=== PATIENT | male | born 1970 | race Two or more races ===

== ENCOUNTER 2025-03-24 08:33 | Emergency (ER) | payer MEDICAID, SELFPAY ==
[2025-03-24 08:34] VITALS: BMI 38.3
--- NOTE | 2025-03-24 09:01 | XR_ITS ---
Examination: CT abdomen and pelvis without contrast. Coronal 3-D reconstructions. Sagittal 2-D reconstructions. Date and time of exam: March 24, 2025, 0911 hours, comparison January 24, 2013 INDICATIONS: Left lower abdominal pain testicular pain beginning 1 month ago CTDI: vol (mGy): 12.8 DLP: (mGycm): 784 Technique: Axial images of the abdomen have been obtained, 3 mm slice thickness Intravenous contrast material has not been administered. Low dose protocols were performed. One or more of the following dose reduction techniques were used; automated exposure control, adjustment of the mA and/or KV according to patient size, use of iterative reconstruction technique. Findings: No focal liver or splenic lesions No gallstones No pancreatic or adrenal mass No renal or ureteral calculi, no hydronephrosis Aorta normal size Normal appendix Colonic diverticulosis, no diverticulitis Fat-containing inguinal hernias No prostatomegaly No current diverticulitis No bladder mass or bladder calculi IMPRESSION: No renal or ureteral calculi, no hydronephrosis Normal appendix Colonic diverticulosis, no diverticulitis currently Large bilateral fat-containing inguinal hernias
--- NOTE | 2025-03-24 09:01 | XR_ITS ---
EXAMINATION: Testicular sonography complete TECHNIQUE: Grayscale sonographic images to testes, assessment arterial inflow and venous outflow Doppler spectral analysis and color flow analysis Date and time: March 17, 10:00 a.m. INDICATIONS: Left testicular pain 1 month, history mass left testicle removed surgically FINDINGS: Right testis 3.1 cm epididymis not visualized Arterial flow of the testicle. No testicular mass Left testis 4.3 cm epididymis 20 mm Oval left epididymal mass 3.9 x 2.5 x 3.0 cm Significant left hydrocele with debris IMPRESSION: No testicular torsion Left epididymitis Left epididymal mass with vascularity 3.9 x 2.5 x 3.0 cm
--- NOTE | 2025-03-24 09:01 | PD.EDRME ---
Rapid Medical Screening Exam RME Arrival date/time: 03/24/25 08:33 54-year-old male with a history of hypertension presents to the emergency room with a chief complaint of testicular swelling and testicular pain x 3 days. Patient states he has a history of testicular problems. I have greeted and performed a focused initial assessment of this patient. A comprehensive ED assessment and evaluation of the patient, analysis of all test results, and completion of the medical decision making process will be conducted by additional ED providers. Chief Complaint: Urogenital-Male Time Seen by Provider: 03/24/25 08:48 Vital signs reviewed by provider: Yes Exam: Soft nontender abdomen with palpation Testicular swelling. Positive cremasteric reflex Clinical Impression: Epididymitis/UTI/testicular torsion/testicular mass
[2025-03-24 09:32] VITALS: BP 194/128; PULSE 89; RESP 18; TEMP 36.9; O2SAT 99
[2025-03-24] MEDS: KETOROLAC INJ 60 MG/2 ML VIAL 30 MG IM (09:32)
[2025-03-24 09:38] VITALS: BP 193/134; PULSE 91
[2025-03-24 09:58] LABS: Basophils # (Auto) 0.0 Thou/mm3 (0.0-0.2); Basophils % (Auto) 1 % (0-2.5); Eosinophils # (Auto) 0.1 Thou/mm3 (0.0-0.5); Eosinophils % (Auto) 1 % (0-10); Hematocrit 41.8 % (41.0-53.0); Hemoglobin 14.1 g/dL (13.5-16.0); Immature Granulocytes Auto 0.02 Thou/mm3 (0.00-0.00); Lymphocytes # (Auto) 1.7 Thou/mm3 (1.0-4.8); Lymphocytes % (Auto) 25 % (10-50); Mean Corpuscular HGB Conc 33.7 g/dl (31.0-37.0); Mean Corpuscular Hemoglobin 28.7 pg (25.0-35.0); Mean Corpuscular Volume 85 fL (80-100); Monocytes # (Auto) 0.5 Thou/mm3 (0.0-0.8); Monocytes % (Auto) 8 % (0-12); Neutrophils # (Auto) 4.4 Thou/mm3 (1.8-7.7); Neutrophils % (Auto) 65 % (37-80); Nucleated Red Blood Cell # 0.00 Thou/mm3 (0.00-0.00); Nucleated Red Blood Cell % 0 /100 WBC (0); Platelet Count 269 Thou/mm3 (140-440); RDW Standard Deviation 42.4 fL (35.1-43.9); Red Blood Count 4.92 Miln/mm3 (4.50-5.90); White Blood Count 6.7 Thou/mm3 (3.8-10.6)
[2025-03-24 10:19] LABS: Alanine Aminotransferase 26 U/L (10-49); Albumin, Serum 4.8 gm/dL (3.5-5.0); Albumin/Globulin Ratio 2.2 (1.2-2.2); Alkaline Phosphatase 76 U/L (46-116); Anion Gap 10 (7-16); Aspartate Amino Transferase 25 U/L (0-34); BUN/Creatinine Ratio 16 Ratio (12-20); Bilirubin,Total 0.6 mg/dL (0.3-1.2); Blood Urea Nitrogen 14 mg/dL (9-23); Calcium 9.3 mg/dL (8.3-10.6); Calcium (Corrected) 9.3 mg/dL (8.5-10.1); Carbon Dioxide 26.7 mMol/L (20.0-31.0); Chloride 104 mMol/L (98-107); Creatinine (Component) 0.9 mg/dL (0.6-1.3); Estimated Creatinine Clearance 126.2 mL/min (>60); Globulin 2.2 gm/dL (2.3-3.5); Glucose 106 mg/dL (74-106); Lipase 39 U/L (12-53); Osmolality,Calculated 281 (275-295); Potassium 3.9 mMol/L (3.4-5.1); Sodium 141 mMol/L (136-145); Total Protein 7.0 gm/dL (5.7-8.2); eGFR > 60 See Note
[2025-03-24 10:34] VITALS: BP 188/114; PULSE 79; RESP 19; O2SAT 100
--- NOTE | 2025-03-24 10:49 | PD.EDMALE ---
ED Male Genitalurinary RME/HPI General Chief complaint: Urogenital-Male Stated complaint: SWELLING/PAIN LEFT TESTICLE x 1 MONTH Time Seen by Provider: 03/24/25 08:48 Arrival date/time: 03/24/25 08:33 Limitations: no limitations RME / HPI RME / HPI Narrative: 03/24/25 08:33 54-year-old male with a history of hypertension presents to the emergency room with a chief complaint of testicular swelling and testicular pain x 3 days. Patient states he has a history of testicular problems. I have greeted and performed a focused initial assessment of this patient. A comprehensive ED assessment and evaluation of the patient, analysis of all test results, and completion of the medical decision making process will be conducted by additional ED providers. DR. CRUZ MAIN ED EVALUATION: 54 year old male with history of chronic epididymitis, s/p right testicular mass removal performed in [place], [place] in 2017, hypertension presents to the ED for evaluation of left testicular pain beginning 1 month ago that is progressively worsening. Pain described as aching in sensation, rating 7/10 in severity. Reports pain today similar to the right testicular pain he had before the tumor removal. Denies any fevers, chills, or urinary symptoms. Denies consulting with urologist since onset of pain. Exam: Soft nontender abdomen with palpation Testicular swelling. Positive cremasteric reflex Impression: Epididymitis/UTI/testicular torsion/testicular mass Related Data Home Medications ?Medication ?Instructions ?Recorded ?Confirmed albuterol sulfate 90 mcg/actuation 2 puff inhalation Q4H PRN Cough 11/11/21 11/11/21 aerosol inhaler ibuprofen 600 mg tablet 1 tab PO TID PRN Pain 11/11/21 11/11/21 meloxicam 15 mg tablet 1 tab PO QDAY 11/11/21 11/11/21 Previous Rx's ?Medication ?Instructions ?Recorded amlodipine 10 mg tablet 10 mg PO QDAY #30 tabs 11/11/21 clonidine HCl 0.1 mg tablet 0.1 mg PO BID #60 tabs 11/11/21 hydrocodone 5 mg-acetaminophen 325 1 tab PO Q8H PRN pain #10 tabs 11/11/21 mg tablet ibuprofen 600 mg tablet 600 mg PO TID PRN pain #16 tabs 11/11/21 lisinopril 40 mg tablet 40 mg PO QDAY #30 tabs 11/11/21 hydrocodone 5 mg-acetaminophen 325 1 tab PO Q8H PRN pain #14 tabs 03/24/25 mg tablet Allergies Allergy/AdvReac Type Severity Reaction Status Date / Time No Known Allergies Allergy Verified 03/24/25 08:36 Review of Systems Review of Systems Systems Reviewed: All systems reviewed, normal except as documented Past Medical History Past Medical History CARDIAC: Positive Hypertension Surgical History OTHER SURGICAL HX: right testicular mass removed 2016 Social History SMOKING STATUS: Never smoker SUBSTANCE USE: does not use ED Exam General Limitations: Present no limitations General appearance: Present alert and in no apparent distress Head Head exam: Present atraumatic, normocephalic and normal inspection Eye Eye exam: Present normal appearance, PERRL and EOMI ENT ENT exam: Present normal exam, normal oropharynx and mucous membranes moist Neck Neck exam: Present normal inspection, full ROM and trachea midline Chest Chest inspection: Present normal inspection and symmetric chest wall rise Respiratory Respiratory exam: Present normal lung sounds bilaterally Cardiovascular Cardiovascular exam: Present regular rate, normal rhythm and normal heart sounds Abdominal Exam Abdominal exam: Present soft and normal bowel sounds exam: Present other (Left scrotum test palpated no masses, left scrotal area enlarged with no discrete mass though there is an area measuring 4cm x 3 cm which was soft and mass like. The right scrotal area with no mass, penis uncircumcised, no lesions. ) Extremities Exam Extremities exam: Present normal inspection and full ROM Back Exam Back exam: Present normal inspection and full ROM Neurological Exam Neurological exam: Present alert, oriented X3 and CN II-XII intact Psychiatric Psychiatric exam: Present normal affect and normal mood Skin Skin exam: Present warm, dry, intact and normal color Course Quality Measures none Orders Category Date Time Status CT abdomen pelvis wo con Stat Exams 03/24/25 09:01 Completed US testicular Stat Exams 03/24/25 09:01 Completed CBC Stat Lab 03/24/25 09:36 Completed CMP [Comprehensive Metabolic Panel] Stat Lab 03/24/25 09:36 Completed Lipase Stat Lab 03/24/25 09:36 Completed UA [Urinalysis] Stat Lab 03/24/25 10:47 Completed Urine Culture Stat Lab 03/24/25 10:47 Received Ketorolac Inj [Toradol Inj] Med 03/24/25 09:01 Discontinued 30 mg IM X1 ONE cloNIDine HCL [Catapres] Med 03/24/25 09:33 Discontinued 0.1 mg PO X1 ONE cloNIDine HCL [Catapres] Med 03/24/25 11:50 Discontinued 0.1 mg PO X1 ONE Vital Signs Vital signs: Vital Signs Temperature 98.5 F 03/24/25 09:32 Pulse Rate 89 03/24/25 09:32 Respiratory Rate 18 03/24/25 09:32 Blood Pressure 194/128 H 03/24/25 09:32 Pulse Oximetry (%) 99 03/24/25 09:32 Oxygen Delivery Method Room Air 03/24/25 09:32 Pulse ox is 99% on room air which is adequate. Urogenital - Male MDM Narrative MDM Narrative:: Melissa Umana am scribing for and in the presence of Dr. Cruz. Patient data External records reviewed:: [facility] previous records Clinical information provided by:: patient Social determinants that could affect healthcare access:: alcohol use (admit to drinking vodka this morning ) Patient has the following chronic illnesses:: chronic epididymitis, s/p right testicular mass removal performed in [place] in 2017, hypertension How is presenting disease/condition affected by chronic disease/condition?: exacerbated by Evaluation data The following diagnostics were reviewed and interpreted by me:: lab results and radiology exam(s) Lab and/or radiology exams considered but not ordered:: None Interpretation Summary: Ordering Physician: Scotty Byers Date of Service: 03/24/25 Procedure(s): CT abdomen pelvis wo con Accession Number(s): [id number] cc: Scotty Byers; Brad Jarrett MD; NO PRIMARY/FAMILY,PHYSICIAN~ Examination: CT abdomen and pelvis without contrast. Coronal 3-D reconstructions. Sagittal 2-D reconstructions. Date and time of exam: March 24, 2025, 0911 hours, comparison January 24, 2013 INDICATIONS: Left lower abdominal pain testicular pain beginning 1 month ago CTDI: vol (mGy): 12.8 DLP: (mGycm): 784 Technique: Axial images of the abdomen have been obtained, 3 mm slice thickness Intravenous contrast material has not been administered. Low dose protocols were performed. One or more of the following dose reduction techniques were used; automated exposure control, adjustment of the mA and/or KV according to patient size, use of iterative reconstruction technique. Findings: No focal liver or splenic lesions No gallstones No pancreatic or adrenal mass No renal or ureteral calculi, no hydronephrosis Aorta normal size Normal appendix Colonic diverticulosis, no diverticulitis Fat-containing inguinal hernias No prostatomegaly No current diverticulitis No bladder mass or bladder calculi IMPRESSION: No renal or ureteral calculi, no hydronephrosis Normal appendix Colonic diverticulosis, no diverticulitis currently Large bilateral fat-containing inguinal hernias Dictated By: Brad Jarrett MD Signed By: <Electronically signed by Brad Jarrett MD in [place]>03/24/25 0956 Ordering Physician: Scotty Byers Date of Service: 03/24/25 Procedure(s): US testicular Accession Number(s): [id number] cc: Scotty Byers; Brad Jarrett MD; NO PRIMARY/FAMILY,PHYSICIAN~ EXAMINATION: Testicular sonography complete TECHNIQUE: Grayscale sonographic images to testes, assessment arterial inflow and venous outflow Doppler spectral analysis and color flow analysis Date and time: March 17, 10:00 a.m. INDICATIONS: Left testicular pain 1 month, history mass left testicle removed surgically FINDINGS: Right testis 3.1 cm epididymis not visualized Arterial flow of the testicle. No testicular mass Left testis 4.3 cm epididymis 20 mm Oval left epididymal mass 3.9 x 2.5 x 3.0 cm Significant left hydrocele with debris IMPRESSION: No testicular torsion Left epididymitis Left epididymal mass with vascularity 3.9 x 2.5 x 3.0 cm Dictated By: Brad Jarrett MD Signed By: <Electronically signed by Brad Jarrett MD in [place]>03/24/25 1054 Medications / Prescriptions Medications or Prescriptions considered but not ordered:: None Medication administrations:: Medication Administration History Discontinued Medications Clonidine (Clonidine Hcl 0.1 Mg Tablet) 0.1 mg PO X1 ONE Stop: 03/24/25 09:34 Last Admin: 03/24/25 09:38 Dose: 0.1 mg Documented By: MODE Clonidine (Clonidine Hcl 0.1 Mg Tablet) 0.1 mg PO X1 ONE Stop: 03/24/25 11:51 Last Admin: 03/24/25 11:58 Dose: 0.1 mg Documented By: ROMINA Ketorolac Tromethamine (Ketorolac Inj 60 Mg/2 Ml Vial) 30 mg IM X1 ONE Stop: 03/24/25 09:02 Last Admin: 03/24/25 09:32 Dose: 30 mg Documented By: MODE See above Consultations Consultation(s) initiated? (list below): No Diagnosis Urogenital Male Differential Diagnosis: urinary tract infection, epididymitis and inguinal hernia Most likely diagnosis given after review of the tests above:: Mass of left testis Epididymal mass, left Admission Indicated Admission indicated?: not indicated Admission Request Was there a request for admission?: No Disposition Plan Disposition Plan: Discharge Discharge Attestation Discharge Attestation: The patient and all family members were given an opportunity to ask questions and understood the discharge instructions. Discharge instructions specifically effects, indications for sooner follow up or return to the emergency department, and the expected course of current diagnosis. Patient condition: Stable Discharge Plan Plan Patient Disposition: HOME (Self Care) Patient condition on transfer: Stable Prescriptions/Referrals Prescriptions/Med Rec: New hydrocodone-acetaminophen 5-325 mg tablet 1 tab PO Q8H MDD 3 PRN (Reason: pain) Qty: 14 0RF No Action meloxicam 15 mg tablet 1 tab PO QDAY ibuprofen 600 mg tablet 1 tab PO TID PRN (Reason: Pain) Patient Comments: TAKE ONE TABLET BY MOUTH THREE TIMES DAILY NEEDED FOR PAIN WITH FOOD FOR 10 DAYS albuterol sulfate 90 mcg/actuation HFA aerosol inhaler 2 puff INHALATION Q4H PRN (Reason: Cough) Patient Comments: INHALE TWO PUFFS BY MOUTH EVERY 4 HOURS NEEDED lisinopril 40 mg tablet 40 mg PO QDAY Qty: 30 0RF amlodipine 10 mg tablet 10 mg PO QDAY Qty: 30 0RF ibuprofen 600 mg tablet 600 mg PO TID PRN (Reason: pain) Qty: 16 0RF clonidine HCl 0.1 mg tablet 0.1 mg PO BID Qty: 60 0RF hydrocodone-acetaminophen 5-325 mg tablet 1 tab PO Q8H MDD 3 PRN (Reason: pain) Qty: 10 0RF Referrals: No Primary/Family,Physician [Primary Care Provider] - In 1 week Problem List Clinical Impression: Epididymal mass, Mass of left testis Patient/Caregiver Discharge Instructions Discharge Activity: activity as tolerated Additional Instructions: Please follow-up with your regular doctor. You will need to ask for a urology consultation. Take pain medicines as needed. You can also take Tylenol 500 mg 1 to 2 tablets every 6 hours along with Advil 200 mg gelcaps 2 capsules every 6 hours as needed for pain. Work note has been done for today and tomorrow. You can return to work on Monday. Print Language: Algerian Stand Alone Forms: [place] Award Info., Work/School Release, Patient Portal Info Letter
[2025-03-24 11:00] LABS: Collection Type, Urine Clean Catch; Squamous Epithelial Cell,Urine 0 /hpf (0-5)
[2025-03-24 11:05] LABS: Bilirubin,Urine Negative (Negative); Blood,Urine Negative (Negative); Clarity,Urine Clear (Clear/Hazy); Color,Urine Yellow (Lt Yel-Yel); Glucose, Urine Negative (Negative); Ketones,Urine Negative (Negative); Leukocyte Esterase,Urine Negative (Negative); Nitrite,Urine Negative (Negative); PH,Urine 6.5 (5.0-7.0); Protein,Urine Negative (Neg - Trace); RBC,Urine 1 /hpf (0-3); Specific Gravity,Urine 1.012 (1.001-1.035); Urobilinogen,Urine Negative mg/dL (0.0-1.0); WBC,Urine < 1 /hpf (0-5)
[2025-03-24 11:58] VITALS: BP 171/93; PULSE 82
[2025-03-24 12:03] VITALS: BP 171/93; PULSE 79; RESP 19; TEMP 37.1; O2SAT 98
[2025-03-24 12:46] VITALS: BP 164/100; PULSE 78; RESP 19; TEMP 37.1; O2SAT 98
== END 2025-03-24 12:47 | disposition home or self-care (01) ==
PROVIDERS: Nurse Practitioner Family; Emergency Provider Family Medicine
DX: N45.1 Epididymitis (principal); I10 Essential (primary) hypertension
CPT/HCPCS: 36415; 74176; 76870; 80053; 81001; 83690; 85025; 87086; 96372; 99283; J1885; A9270